=== PATIENT | male | born 1955 | race American Indian/Alaskan Native ===

== ENCOUNTER 2019-01-21 15:16 | Inpatient (IN) | payer MEDICARE ==
--- NOTE | 2019-01-21 15:29 | Event Note ---
ED Screening Note Date of service: 01/21/19 Time: 15:28 ED Screening Note: 63 y o male presents with blood in stool and vomitting blood This initial assessment/diagnostic orders/clinical plan/treatment(s) is/are subject to change based on patients health status, clinical progression and re-assessment by fellow clinical providers in the ED. Further treatment and workup at subsequent clinical providers discretion. Patient/guardian urged not to elope from the ED as their condition may be serious if not clinically assessed and managed. Initial orders include: labs main side eval
[2019-01-21] MEDS ORDERED: SODIUM CHLORIDE 0.9% 1000 ML 2,000 ML IV ONE (16:04)
[2019-01-21] MEDS ORDERED: SODIUM CHLORIDE 0.9% 1000 ML 1,000 ML IV ONE (16:04)
[2019-01-21 16:13] LABS: Basophils # (Auto) 0.1 K/mm3 (0.0-0.1); Basophils % (Auto) 0.6 % (0.0-1.8); Eosinophils % (Auto) 0.5 % (0.0-4.3); Hematocrit 28.7 % (35.5-45.6); Hemoglobin 9.9 gm/dl (11.8-15.2); Lymphocytes # (Auto) 1.4 K/mm3 (1.2-5.4); Lymphocytes % (Auto) 15.2 % (13.4-35.0); Mean Corpuscular HGB Conc 35 % (32-34); Mean Corpuscular Volume 103 fl (84-94); Monocytes # (Auto) 0.7 K/mm3 (0.0-0.8); Monocytes % (Auto) 6.9 % (0.0-7.3); Platelet Count 266 K/mm3 (140-440); Red Blood Count 2.79 M/mm3 (3.65-5.03); Red Cell Distribution Width 12.3 % (13.2-15.2)
[2019-01-21 16:22] LABS: BUN/Creatinine Ratio 51; Blood Urea Nitrogen 46 mg/dL (9-20); Calcium 8.8 mg/dL (8.4-10.2); Hemolysis Index 7
[2019-01-21 16:23] LABS: INR 1.06 (0.87-1.13)
[2019-01-21] MEDS ORDERED: PANTOPRAZOLE 40 MG INJ IV ONE (16:23)
[2019-01-21 16:24] LABS: Partial Thromboplastin Time 26.1 Sec. (24.2-36.6)
--- NOTE | 2019-01-21 16:25 | Emergency Department Report ---
ED GI Bleed HPI - General Chief complaint: GI Bleed Stated complaint: GI BLEED PER PATIENT DOCTOR Time Seen by Provider: 01/21/19 16:04 Source: patient, family, RN notes reviewed Mode of arrival: Wheelchair Limitations: No Limitations - History of Present Illness Initial comments: Primary care DrMark: Jackie This is a pleasant 63-year-old gentleman who is not known to this provider previously. He is sent to the emergency room by his primary care doctor because of concern of upper GI bleed. Patient complains of black stool, painless, lightheadedness, dizziness, malaise and fatigue. Symptoms intermittent, dizziness, described as lightheadedness, worsens when standing up, and decreases with rest. He does not take systemic anticoagulation, and he has no history of endoscopy or colonoscopy that he is aware of. He does consume recreational alcohol. MD complaint: coffee ground emesis, melena -: Gradual, days(s) Quality: painless Consistency: constant Improves with: none Worsens with: none Associated Symptoms: nausea, vomiting, syncope, weakness. denies: other bleedi ng - Related Data Allergies Allergy/AdvReac Type Severity Reaction Status Date / Time No Known Allergies Allergy Unverified 01/21/19 15:30 ED Review of Systems ROS: Stated complaint: GI BLEED PER PATIENT DOCTOR Other details as noted in HPI Constitutional: malaise. denies: fever Eyes: denies: eye discharge ENT: denies: congestion Respiratory: denies: wheezing Cardiovascular: syncope (near syncope) Gastrointestinal: nausea, vomiting, melena. denies: hematochezia Genitourinary: denies: dysuria Musculoskeletal: denies: myalgia Skin: denies: lesions Neurological: weakness Hematological/Lymphatic: denies: easy bleeding ED Past Medical Hx - Past Medical History Previous Medical History?: Yes Hx Hypertension: Yes - Surgical History Past Surgical History?: Yes Additional Surgical History: eye surgery - Social History Smoking Status: Never Smoker Substance Use Type: None ED Physical Exam - General Limitations: No Limitations General appearance: alert, anxious - Head Head exam: Present: atraumatic, normocephalic - Eye Eye exam: Present: normal appearance, EOMI, other (bilateral conjunctiva noted to be pale). Absent: nystagmus - ENT ENT exam: Present: normal exam, normal orophraynx, mucous membranes moist, normal external ear exam - Neck Neck exam: Present: normal inspection, full ROM. Absent: tenderness, meningismus - Respiratory Respiratory exam: Present: normal lung sounds bilaterally. Absent: respiratory distress - Cardiovascular Cardiovascular Exam: Present: normal rhythm, tachycardia, normal heart sounds. Absent: systolic murmur, diastolic murmur, rubs, gallop - GI/Abdominal GI/Abdominal exam: Present: soft. Absent: distended, tenderness, guarding, rebound, rigid, pulsatile mass - Rectal Rectal exam: Present: normal inspection, heme (+) stool, black stool, other (bilingual teacher aide by Dave Rich). Absent: bloody stool, fecal impaction, tenderness - Extremities Exam Extremities exam: Present: normal inspection, full ROM, other (2+ pulses noted in the bilateral upper, lower extremities. There is no long bone tenderness. Musculoskeletal compartments are soft. The pelvis is stable.). Absent: pedal edema, joint swelling, calf tenderness - Back Exam Back exam: Present: normal inspection, full ROM. Absent: tenderness, CVA tenderness (R), CVA tenderness (L), paraspinal tenderness, vertebral tenderness - Neurological Exam Neurological exam: Present: alert, normal gait, other (there is no facial droop. The tongue is midline. Extraocular movements are intact bilaterally. Patient speaking in full complete sentences. Shoulder shrug is intact bilaterally. Hea ring is grossly intact bilaterally. Visual acuity intact to finger counting and color perception at a close distance. 5/5 strength 4 extremities. Sensation intact to light touch in 4 extremities.). Absent: motor sensory deficit - Psychiatric Psychiatric exam: Present: anxious - Skin Skin exam: Present: warm, dry, intact, normal color. Absent: rash ED Course Vital Signs 01/21/19 01/21/19 15:27 16:15 Temperature 97.5 F L Pulse Rate 123 H 116 H Respiratory 18 19 Rate Blood Pressure 92/61 Blood Pressure 111/67 [Right] O2 Sat by Pulse 100 100 Oximetry ED Medical Decision Making - Lab Data Result diagrams: 01/21/19 15:34 01/21/19 15:34 Vital Signs 01/21/19 01/21/19 15:27 16:15 Temperature 97.5 F L Pulse Rate 123 H 116 H Respiratory 18 19 Rate Blood Pressure 92/61 Blood Pressure 111/67 [Right] O2 Sat by Pulse 100 100 Oximetry Lab Results 01/21/19 01/21/19 01/21/19 Range/Units 15:34 15:34 15:34 WBC 9.4 (4.5-11.0) K/mm3 RBC 2.79 L (3.65-5.03) M/mm3 Hgb 9.9 L (11.8-15.2) gm/dl Hct 28.7 L (35.5-45.6) % MCV 103 H (84-94) fl MCH 36 H (28-32) pg MCHC 35 H (32-34) % RDW 12.3 L (13.2-15.2) % Plt Count 266 (140-440) K/mm3 Lymph % (Auto) 15.2 (13.4-35.0) % [place] % (Auto) 6.9 (0.0-7.3) % Eos % (Auto) 0.5 (0.0-4.3) % Baso % (Auto) 0.6 (0.0-1.8) % Lymph # 1.4 (1.2-5.4) K/mm3 [place] # 0.7 (0.0-0.8) K/mm3 Eos # 0.0 (0.0-0.4) K/mm3 Baso # 0.1 (0.0-0.1) K/mm3 Seg Neutrophils % 76.8 H (40.0-70.0) % Seg Neutrophils # 7.2 (1.8-7.7) K/mm3 PT 13.7 (12.2-14.9) Sec. INR 1.06 (0.87-1.13) APTT 26.1 (24.2-36.6) Sec. Sodium 135 L (137-145) mmol/L Potassium 4.5 (3.6-5.0) mmol/L Chloride 98.8 (98-107) mmol/L Carbon Dioxide 23 (22-30) mmol/L Anion Gap 18 mmol/L BUN 46 H (9-20) mg/dL Creatinine 0.9 (0.8-1.5) mg/dL Estimated GFR > 60 ml/min BUN/Creatinine Ratio 51 % Glucose 138 H (75-100) mg/dL Calcium 8.8 (8.4-10.2) mg/dL Magnesium (1.7-2.3) mg/dL Total Creatine Kinase (55-170) units/L Blood Type Antibody Screen 01/21/19 01/21/19 Range/Units 15:36 Unknown WBC (4.5-11.0) K/mm3 RBC (3.65-5.03) M/mm3 Hgb (11.8-15.2) gm/dl Hct (35.5-45.6) % MCV (84-94) fl MCH (28-32) pg MCHC (32-34) % RDW (13.2-15.2) % Plt Count (140-440) K/mm3 Lymph % (Auto) (13.4-35.0) % [place] % (Auto) (0.0-7.3) % Eos % (Auto) (0.0-4.3) % Baso % (Auto) (0.0-1.8) % Lymph # (1.2-5.4) K/mm3 [place] # (0.0-0.8) K/mm3 Eos # (0.0-0.4) K/mm3 Baso # (0.0-0.1) K/mm3 Seg Neutrophils % (40.0-70.0) % Seg Neutrophils # (1.8-7.7) K/mm3 PT (12.2-14.9) Sec. INR (0.87-1.13) APTT (24.2-36.6) Sec. Sodium (137-145) mmol/L Potassium (3.6-5.0) mmol/L Chloride (98-107) mmol/L Carbon Dioxide (22-30) mmol/L Anion Gap mmol/L BUN (9-20) mg/dL Creatinine (0.8-1.5) mg/dL Estimated GFR ml/min BUN/Creatinine Ratio % Glucose (75-100) mg/dL Calcium (8.4-10.2) mg/dL Magnesium 1.80 (1.7-2.3) mg/dL Total Creatine Kinase 68 (55-170) units/L Blood Type AB POSITIVE Antibody Screen Negative - EKG Data -: EKG Interpreted by Ri EKG shows normal: sinus rhythm Rate: tachycardia - EKG Data When compared to previous EKG there are: previous EKG unavailable 01/21/19 18:08 There is no prior EKG available for comparison. The EKG shows a sinus tachycardia, 109 bpm, ventricular hypertrophy, QTC 442 ms, not having chest pain, EKG abnormal, there is no prior for comparison, the EKG is not consistent with STEMI - Medical Decision Making Differential diagnosis, including not limited to: Upper GI bleed Assessment and plan: 63-year-old gentleman with complaint of weakness, lightheadedness, found to be tachycardic, hypotensive, now resolved, laboratory evidence of physical exam evidence suggest upper GI bleed. 2 large-bore IVs established. IV fluids established. Protonix ordered. Contacted [facility], Dr. Lambert, will following consultation. Contacted his primary care doctor, Dr Vasquez., who has accepted the patient to the medical service. Discussed plan of care for admission with patient, and family, who verbalized understanding, they were amenable to hospitalization and admission at this time. Critical care attestation.: If time is entered above; I have spent that time in minutes in the direct care of this critically ill patient, excluding procedure time. ED Disposition Clinical Impression: UGIB (upper gastrointestinal bleed) Disposition: DC-09 OP ADMIT IP TO THIS HOSP Is pt being admited?: Yes Condition: Serious Referrals: MARC VASQUEZ MD [Primary Care Provider] - 3-5 Days Forms: Accompanied Note
--- NOTE | 2019-01-21 18:22 | History and Physical Report ---
History of Present Illness Date of examination: 01/21/19 Date of admission: 01/21/19 Chief complaint: Hematemesis and melena - 1 day duration History of present illness: Patient is a 63 y/o male aaron presented to my office today in company of his bother on account of passing dark tarry stool and having an episode of hematemesis. However he has lightheadedness, dizziness, malaise and fatigue worsens on standing up, and abates with rest. he was recently place on NSAID by his driver medic of foot pain. He who is less than a month old to my practice has no history of endoscopy or colonoscopy that he is aware of. He is not on any systemic anticoagulation. Direct admission through the ED was requested. On admission pat has sinus tach and H/H was 9.9 and 28.7 has elevate BUN of 46. GI consult was obtained after discussion with the Ed doctor. Patient was commence on IVF and Protonix with serial H/H. Past History Past Medical History: hypertension Medications and Allergies Allergies Allergy/AdvReac Type Severity Reaction Status Date / Time No Known Allergies Allergy Unverified 01/21/19 15:30 Active Meds: Active Medications Pantoprazole Sodium (Protonix) 40 mg IV BID BRITTNI Sodium Chloride (Nacl 0.9%) 125 ml IV DIRECT BRITTNI Review of Systems Constitutional: fatigue, weakness, no weight loss, no weight gain, no fever, no chills Ears, nose, mouth and throat: no ear pain, no ear discharge, no tinnitis Cardiovascular: no chest pain, no orthopnea, no palpitations, no rapid/irregular heart beat, no edema Respiratory: no cough, no cough with sputum, no excessive sputum Gastrointestinal: hematemesis, coffee ground emesis, melena, no abdominal pain, no nausea, no vomiting, no diarrhea, no constipation Genitourinary Male: no urinary frequency, no urinary hesitancy, no nocturia, no incontinence Musculoskeletal: no neck stiffness, no neck pain, no shooting arm pain, no arm numbness/tingling Integumentary: no rash, no pruritis, no redness Neurological: no head injury, no transient paralysis, no paralysis, no weakness, no numbness, no tingling Psychiatric: no memory loss, no change in sleep habits, no sleep disturbances, no insomnia, no hypersomnia, no change in appetite Endocrine: no cold intolerance, no heat intolerance, no polyphagia Hematologic/Lymphatic: no easy bruising, no easy bleeding Allergic/Immunologic: no urticaria, no allergic rhinitis Exam - Constitutional Vitals: Temp Pulse Resp BP Pulse Ox 97.5 F L 116 H 19 111/67 100 01/21/19 15:27 01/21/19 16:15 01/21/19 16:15 01/21/19 16:15 01/21/19 16:15 General appearance: Present: no acute distress, well-nourished - EENT Eyes: Present: PERRL ENT: hearing intact, clear oral mucosa - Neck Neck: Present: supple, normal ROM - Respiratory Respiratory effort: normal Respiratory: bilateral: CTA - Cardiovascular Heart Sounds: Present: S1 & S2. Absent: rub, click - Extremities Extremities: pulses symmetrical, No edema Peripheral Pulses: within normal limits - Abdominal General gastrointestinal: Present: soft, non-tender, non-distended, normal bowel sounds - Integumentary Integumentary: Present: clear, warm, dry - Musculoskeletal Musculoskeletal: gait normal, strength equal bilaterally - Psychiatric Psychiatric: appropriate mood/affect, intact judgment & insight - Neurologic Neurologic: CNII-XII intact, moves all extremities Results - Labs CBC & Chem 7: 01/21/19 15:34 01/21/19 15:34 Labs: Abnormal lab results 01/21/19 01/21/19 Range/Units 15:34 15:34 RBC 2.79 L (3.65-5.03) M/mm3 Hgb 9.9 L (11.8-15.2) gm/dl Hct 28.7 L (35.5-45.6) % MCV 103 H (84-94) fl MCH 36 H (28-32) pg MCHC 35 H (32-34) % RDW 12.3 L (13.2-15.2) % Seg Neutrophils % 76.8 H (40.0-70.0) % Sodium 135 L (137-145) mmol/L BUN 46 H (9-20) mg/dL Glucose 138 H (75-100) mg/dL Assessment and Plan - GI bleeding likely uper GI NPO IVF with NS Iiv Protonix Serial H/H. Transfuse if Hg < 8 GI consulted - LAURENT with elevated BUN likely from GI bleeding IV hydration - Hyperglycemia Obatin A1c - DVT PPx with SCD only. Avoid anticoagulation b/c gi bleeding
[2019-01-21] MEDS ORDERED: SODIUM CHLORIDE 0.9% 100 ML IVPB IV SCH (19:00)
[2019-01-21] MEDS ORDERED: SODIUM CHLORIDE 0.9% 1000 ML 1,000 ML IV SCH (19:00)
[2019-01-21] MEDS: PANTOPRAZOLE 40 MG INJ IV SCH (21:51)
[2019-01-21 21:52] LABS: Hemoglobin 6.8 gm/dl (11.8-15.2)
[2019-01-21 22:10] LABS: Hematocrit 19.9 % (35.5-45.6)
[2019-01-21] MEDS ORDERED: MORPHINE 2 MG/1 ML INJ IV PRN (22:33)
[2019-01-22] MEDS ORDERED: SODIUM CHLORIDE 0.9% 500 ML 500 ML IV ONE (01:20)
--- NOTE | 2019-01-22 09:24 | Cat Scan Report ---
CT ABDOMEN AND PELVIS WITHOUT CONTRAST HISTORY: Abdominal pain. COMPARISON: None TECHNIQUE: Routine abdominal and pelvic CT exam performed without contrast. Lack of intravenous cont rast limits evaluation of the vascular and solid organs.. All CT scans at this location are performed using CT dose reduction for ALARA by means of automated exposure control. FINDINGS: CT ABDOMEN: Lung Bases: No significant abnormality. Liver: No significant abnormality. Biliary: No significant abnormality. Spleen: No significant abnormality. Unenlarged. Pancreas: No significant abnormality. Adrenals: No significant abnormality. Kidneys: No stones, pelvocaliectasis, ureterectasis. No perinephric or periureteral stranding. Lymphatics: No lymphadenopathy. Vasculature: Atherosclerotic but nonaneurysmal abdominal aorta. Bowel/Peritoneum: Nonobstructive bowel pattern. Diverticulosis without mesocolonic fat stranding. No free air. No free fluid. CT PELVIC: : No significant abnormality. Lymphatics: No lymphadenopathy. Osseous Structures: No aggressive appearing osseous lesions. Additional Findings: None IMPRESSION: 1. No acute or concerning findings. 2. Colonic diverticulosis without evidence of acute diverticulitis. 3. Aortic atherosclerosis without aneurysm. Signer Name: James Aceves MD Signed: 01/22/2019 9:20 AM Workstation Name: [email or web address]
--- NOTE | 2019-01-22 09:25 | Gastroenterology Consultation ---
<NADYA MEAD - Last Filed: 01/22/19 09:33> History of Present Illness - Reason for Consult Consult date: 01/22/19 UGIB Requesting physician: NURIS MEDEROS - History of Present Illness Patient is a 63 y/o male with PMH of HTN who presented to ED with c/o black stools with associated lightheadedness/dizziness, and malaise/fatigue. GI has been consulted for UGIB. This morning patient was resting in bed w/o acute distress. Reports feeling better after receiving blood transfusion. Reports epigastric pain described as burning x 1 week and then developed multiple episodes of black stools yesterday along with vomiting dark/black emesis. Last episode of bleeding was yesterday with no active signs of bleeding this am. Denies fever, CP, SOB, wt loss, hematemesis, or hematochezia. Takes occasional Aleve and was recently started on Meloxicam ~3 weeks ago for foot pain. No hx of PUD, liver disease, or prior GI bleeding. Drinks 3-4 beers daily. No previous EGD. Past History Past Medical History: hypertension Past Surgical History: Other (eye surgery) Social history: other (alcohol). denies: smoking Medications and Allergies Allergies Allergy/AdvReac Type Severity Reaction Status Date / Time No Known Allergies Allergy Unverified 01/21/19 15:30 Home Medications Medication Instructions Recorded Confirmed Last Taken Type Cetirizine HCl [Zyrtec 10mg tab] 10 mg PO DAILY 01/22/19 01/22/19 01/20/19 History Meloxicam [Mobic] 7.5 mg PO QDAY 01/22/19 01/22/19 01/20/19 History amLODIPine [Norvasc] 10 mg PO DAILY 01/22/19 01/22/19 01/20/19 History Active Meds: Active Medications Sodium Chloride (Nacl 0.9% 1000 Ml) 1,000 mls @ 125 mls/hr IV DIRECT BRITTNI Last Admin: 01/21/19 21:50 Dose: 125 mls/hr Documented by: Morphine Sulfate (Morphine) 2 mg IV Q4H PRN PRN Reason: Pain , Severe (7-10) Last Admin: 01/22/19 01:07 Dose: 2 mg Documented by: Pantoprazole Sodium (Protonix) 40 mg IV BID BRITTNI Last Admin: 01/21/19 21:51 Dose: 40 mg Documented by: medications reviewed/updated as required Review of Systems - Review of Systems All systems: negative Constitutional: weakness Gastrointestinal: abdominal pain (epigastric), coffee ground emesis, melena Exam - Constitutional Vital Signs: Temp Pulse Resp BP Pulse Ox 98.6 F 81 18 107/67 97 01/22/19 07:33 01/22/19 07:33 01/22/19 07:33 01/22/19 07:33 01/22/19 07:33 General appearance: no acute distress - EENT Eyes: PERRL, EOM intact ENT: hearing intact - Respiratory Respiratory effort: normal - Cardiovascular Rhythm: regular - Gastrointestinal General gastrointestinal: Present: soft, non-tender, non-distended, normal bowel sounds - Integumentary Integumentary: Present: warm, dry - Neurologic Neurological: alert and oriented x3 - Labs CBC & Chem 7: 01/21/19 21:37 01/21/19 15:34 Lab Results: Laboratory Results - last 24 hr 01/21/19 01/21/19 01/21/19 15:34 15:34 15:34 WBC 9.4 RBC 2.79 L Hgb 9.9 L Hct 28.7 L MCV 103 H MCH 36 H MCHC 35 H RDW 12.3 L Plt Count 266 Lymph % (Auto) 15.2 [place] % (Auto) 6.9 Eos % (Auto) 0.5 Baso % (Auto) 0.6 Lymph # 1.4 [place] # 0.7 Eos # 0.0 Baso # 0.1 Seg Neutrophils % 76.8 H Seg Neutrophils # 7.2 PT 13.7 INR 1.06 APTT 26.1 Sodium 135 L Potassium 4.5 Chloride 98.8 Carbon Dioxide 23 Anion Gap 18 BUN 46 H Creatinine 0.9 Estimated GFR > 60 BUN/Creatinine Ratio 51 Glucose 138 H Hemoglobin A1c Calcium 8.8 Magnesium Total Creatine Kinase Blood Type Antibody Screen Crossmatch 01/21/19 01/21/19 01/21/19 15:34 15:36 21:37 WBC RBC Hgb 6.8 L D Hct 19.9 L* D MCV MCH MCHC RDW Plt Count Lymph % (Auto) [place] % (Auto) Eos % (Auto) Baso % (Auto) Lymph # [place] # Eos # Baso # Seg Neutrophils % Seg Neutrophils # PT INR APTT Sodium Potassium Chloride Carbon Dioxide Anion Gap BUN Creatinine Estimated GFR BUN/Creatinine Ratio Glucose Hemoglobin A1c 5.0 Calcium Magnesium Total Creatine Kinase Blood Type AB POSITIVE Antibody Screen Negative Crossmatch See Detail 01/21/19 Unknown WBC RBC Hgb Hct MCV MCH MCHC RDW Plt Count Lymph % (Auto) [place] % (Auto) Eos % (Auto) Baso % (Auto) Lymph # [place] # Eos # Baso # Seg Neutrophils % Seg Neutrophils # PT INR APTT Sodium Potassium Chloride Carbon Dioxide Anion Gap BUN Creatinine Estimated GFR BUN/Creatinine Ratio Glucose Hemoglobin A1c Calcium Magnesium 1.80 Total Creatine Kinase 68 Blood Type Antibody Screen Crossmatch Assessment and Plan 1.UGIB 2.melena/coffee-ground emesis 3.acute blood loss anemia -H/H 6.8/19.9 - 2 units PRBCs transfused with repeat H/H pending -continue to monitor H/H and transfuse as needed -no active signs of bleeding this am; patient reports multiple episodes of black stools and coffee-ground emesis yesterday. No hematemesis or hematochezia. +epigastric pain/burning. -currently HD stable -etiology-likely 2/2 PUD given history vs other -will schedule for EGD today for further evaluation -Keep NPO for now -continue PPI and supportive care -further recommendations to follow EGD results <MARIANA MONTGOMERY - Last Filed: 01/22/19 09:58> Medications and Allergies Active Meds: Active Medications Sodium Chloride (Nacl 0.9% 1000 Ml) 1,000 mls @ 50 mls/hr IV DIRECT [facility] Morphine Sulfate (Morphine) 2 mg IV Q4H PRN PRN Reason: Pain , Severe (7-10) Last Admin: 01/22/19 01:07 Dose: 2 mg Documented by: Pantoprazole Sodium (Protonix) 40 mg IV BID BRITTNI Last Admin: 01/21/19 21:51 Dose: 40 mg Documented by: Exam - Constitutional Vital Signs: Temp Pulse Resp BP Pulse Ox 98.1 F 83 16 114/73 99 01/22/19 09:45 01/22/19 09:45 01/22/19 09:45 01/22/19 09:45 01/22/19 09:45 - Labs CBC & Chem 7: 01/21/19 21:37 01/21/19 15:34 Lab Results: Laboratory Results - last 24 hr 01/21/19 01/21/19 01/21/19 15:34 15:34 15:34 WBC 9.4 RBC 2.79 L Hgb 9.9 L Hct 28.7 L MCV 103 H MCH 36 H MCHC 35 H RDW 12.3 L Plt Count 266 Lymph % (Auto) 15.2 [place] % (Auto) 6.9 Eos % (Auto) 0.5 Baso % (Auto) 0.6 Lymph # 1.4 [place] # 0.7 Eos # 0.0 Baso # 0.1 Seg Neutrophils % 76.8 H Seg Neutrophils # 7.2 PT 13.7 INR 1.06 APTT 26.1 Sodium 135 L Potassium 4.5 Chloride 98.8 Carbon Dioxide 23 Anion Gap 18 BUN 46 H Creatinine 0.9 Estimated GFR > 60 BUN/Creatinine Ratio 51 Glucose 138 H Hemoglobin A1c Calcium 8.8 Magnesium Total Creatine Kinase Blood Type Antibody Screen Crossmatch 01/21/19 01/21/19 01/21/19 15:34 15:36 21:37 WBC RBC Hgb 6.8 L D Hct 19.9 L* D MCV MCH MCHC RDW Plt Count Lymph % (Auto) [place] % (Auto) Eos % (Auto) Baso % (Auto) Lymph # [place] # Eos # Baso # Seg Neutrophils % Seg Neutrophils # PT INR APTT Sodium Potassium Chloride Carbon Dioxide Anion Gap BUN Creatinine Estimated GFR BUN/Creatinine Ratio Glucose Hemoglobin A1c 5.0 Calcium Magnesium Total Creatine Kinase Blood Type AB POSITIVE Antibody Screen Negative Crossmatch See Detail 01/21/19 Unknown WBC RBC Hgb Hct MCV MCH MCHC RDW Plt Count Lymph % (Auto) [place] % (Auto) Eos % (Auto) Baso % (Auto) Lymph # [place] # Eos # Baso # Seg Neutrophils % Seg Neutrophils # PT INR APTT Sodium Potassium Chloride Carbon Dioxide Anion Gap BUN Creatinine Estimated GFR BUN/Creatinine Ratio Glucose Hemoglobin A1c Calcium Magnesium 1.80 Total Creatine Kinase 68 Blood Type Antibody Screen Crossmatch Assessment and Plan Patient seen and examined. Agree with note above. Will plan for EGD today; cont IV PPI
--- NOTE | 2019-01-22 09:39 | Anesthesia Day of Surgery ---
Anesthesia Day of Surgery - Day of Surgery Patient Examined: Yes Patient H&P Reviewed: Yes Patient is NPO: Yes
--- NOTE | 2019-01-22 09:39 | Anesthesia Consultation ---
Anesthesia Consult and Med Hx Date of service: 01/22/19 - Airway Anesthetic Teeth Evaluation: Edentulous ROM Head & Neck: Adequate Mental/Hyoid Distance: Adequate Mallampati Class: Class II Intubation Access Assessment: Good - Pulmonary Exam CTA: Yes - Cardiac Exam Cardiac Exam: RRR - Pre-Operative Health Status ASA Pre-Surgery Classification: ASA2 - Pulmonary Hx Smoking: Yes - Cardiovascular System Hx Hypertension: Yes - Other Systems Hx Cancer: No
[2019-01-22] MEDS: SODIUM CHLORIDE 0.9% 1000 ML 1,000 ML IV SCH ×2 (09:44→15:11)
[2019-01-22] MEDS ORDERED: LIDOCAINE MPF (2%) 20 MG/1 ML VIAL 5 ML ONE (10:00)
[2019-01-22] MEDS ORDERED: PHENYLEPHRINE/NS 1,000 MCG/10 ML SYRINGE (OR USE) IV ONE (10:00)
[2019-01-22] MEDS ORDERED: PROPOFOL 200 MG/20 ML VIAL IV ONE (10:03)
--- NOTE | 2019-01-22 10:25 | Operative Report ---
Operative Report Operative Report: Esophagogastroduodenoscopy Procedure Note with Biopsies Date of procedure: 01/22/2019 Endoscopist: Martín Lambert Pre-op diagnosis: Melena, Upper GI bleed Post-op diagnosis: Clean based ulcers in the antrum; sophie javon tear, enlarged fold vs polyp in antrum (biopsied) Anesthesia: MAC Complications: No immediate complications Estimated blood loss: minimal Procedure: After consent was obtained, the patient was placed in the left lateral decubitus position. The olympus endoscope was inserted into the patient's mouth under direct vision, and advanced into the 2nd portion of the duodenum without difficulty. The patient tolerated the procedure well. The views of the mucosa were good. Patient's vital signs were monitored continuously throughout the procedure. Findings: There was a sophie javon tear in the lower esophagus without high risk bleeding stigmata. Moderately severe esophagitis in the lower esophagus. There were two cratered, clean based ulcers in the antrum. The ulcers were ~8 mm in size. There were no high risk bleeding stigmata associated with the ulcers. The surrounding mucosa was erythematous and inflamed. Biopsies were obtained to rule out H pylori and adenoma. There was an enlarged fold/inflamed mucosa vs polyp in the antrum of the stomach. Biopsies were obtained to rule out dysplasia. The duodenum appeared normal. Impression: 1. Clean based ulcers in the antrum of the stomach. Surrounding mucosa was erythematous/inflamed. biopsies obtained to rule out h pylori and dysplasia. 2. Abnormal growth/polyp vs enlarged fold in the antrum. Biopsied to rule out adenoma/dysplasia. 3. Sophie javon tear without high risk bleeding stigmata. Recommendations: -can switch to PPI po BID dosing -d/c nsaid's -follow-up pathology -okay to start clears and advance as tolerated if no further bleeding today and labs stable -repeat EGD in 2 months to assess for ulcer healing and re-evaluate possible polyp/growth in the antrum -follow-up CT scan results
[2019-01-22] MEDS: PANTOPRAZOLE 40 MG INJ IV SCH ×2 (11:34→21:54)
[2019-01-22 12:43] LABS: Basophils % (Auto) 0.7 % (0.0-1.8); Eosinophils # (Auto) 0.2 K/mm3 (0.0-0.4); Hematocrit 30.1 % (35.5-45.6); Hemoglobin 10.2 gm/dl (11.8-15.2); Lymphocytes # (Auto) 1.4 K/mm3 (1.2-5.4); Lymphocytes % (Auto) 26.2 % (13.4-35.0); Mean Corpuscular HGB Conc 34 % (32-34); Mean Corpuscular Volume 97 fl (84-94); Monocytes # (Auto) 0.5 K/mm3 (0.0-0.8); Platelet Count 165 K/mm3 (140-440); Red Blood Count 3.12 M/mm3 (3.65-5.03); Red Cell Distribution Width 17.4 % (13.2-15.2)
[2019-01-22 13:06] LABS: Alanine Aminotransferase 10 units/L (7-56); BUN/Creatinine Ratio 27; Blood Urea Nitrogen 19 mg/dL (9-20); Calcium 7.7 mg/dL (8.4-10.2); Hemolysis Index 8
--- NOTE | 2019-01-22 14:45 | Progress Note ---
Assessment and Plan Patient is a 63 y/o male aaron presented to my office today in company of his bother on account of passing dark tarry stool and having an episode of hematemesis. However he has lightheadedness, dizziness, malaise and fatigue worsens on standing up, and abates with rest. 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 He who is less than a month old to my practice has no history of endoscopy or colonoscopy that he is aware of. He is not on any systemic anticoagulation. Direct admission through the ED was requested. On admission pat has sinus tach and H/H was 9.9 and 28.7 this further decreased to 6.2. Has elevate BUN of 46. GI consult was obtained after discussion with the Ed doctor. Patient was commence on IVF and Protonix with serial H/H. - GI bleeding likely upper GI EGD showed antral ulcer with clean base Continue IVF with NS Continue iv Protonix Serial H/H. Transfuse if Hg < 8 GI following - Anemia due to gastrointestinal bleeding Had 2 units of packed red blood cell improving from 6.8 to 10.2 - LAURENT with elevated BUN likely from GI bleeding Continue IV hydration - Hyperglycemia A1c was 5.0 - DVT PPx with SCD only. Avoid anticoagulation b/c gi bleeding Subjective Date of service: 01/22/19 Principal diagnosis: GI bleeding Interval history: She has seen and examined. Denies any active bleeding. No abdominal pain. Objective - Exam Narrative Exam: Constitutional: Well-nourished well-developed. In no distress Head: Normocephalic atraumatic Eyes: Pupils are equal round and reactive to light Nose: No enlarged turbinates, no septal deviation. Mouth: Moist mucous membranes. Neck: Supple no thyromegaly. No bruit. No JVD Heart: Regular rate and rhythm, S1-S2 normal. No rubs murmurs or gallop Lungs: Clear to auscultation bilaterally. no rales or rhonchi Abdomen: Soft, nontender. Bowel sound are present. Extremities: No edema, no cyanosis, no clubbing. Neuro: Alert oriented Oriented x3. No focal sensory or motor deficit. Skin: No rashes or hyperpigmented spots Musculoskeletal system: No joint pain or swelling Hematological: No petechia or subcutanous hemorrhages. Immunological: No multiple septic spots on the skin Lymphatic: No generalized lymphadenopathy Psychiatry: Euthymic. Calm. - Constitutional Vitals: Vital Signs - 12hr 01/22/19 01/22/19 01/22/19 03:05 03:25 03:40 Temperature 98.6 F 98.6 F 98.5 F Pulse Rate 82 86 Respiratory 18 18 18 Rate Blood Pressure 84/54 84/54 93/60 O2 Sat by Pulse 99 97 Oximetry 01/22/19 01/22/19 01/22/19 04:10 04:20 04:40 Temperature 98.6 F 96.6 F L Pulse Rate 97 H 81 79 Respiratory 18 18 Rate Blood Pressure 87/57 96/63 O2 Sat by Pulse 95 98 Oximetry 01/22/19 01/22/19 01/22/19 05:10 05:27 05:35 Temperature 96.6 F L 96.6 F L 96.7 F L Pulse Rate 78 78 82 Respiratory 18 18 18 Rate Blood Pressure 85/52 85/52 100/55 O2 Sat by Pulse 97 97 95 Oximetry 01/22/19 01/22/19 01/22/19 05:50 05:58 06:20 Temperature 98.4 F 98.4 F 98.4 F Pulse Rate 82 82 82 Respiratory 18 18 18 Rate Blood Pressure 93/64 107/64 93/64 O2 Sat by Pulse 96 95 96 Oximetry 01/22/19 01/22/19 01/22/19 06:50 06:51 07:20 Temperature 98.4 F 98.4 F 98.4 F Pulse Rate 82 82 78 Respiratory 18 18 18 Rate Blood Pressure 93/64 93/64 92/62 O2 Sat by Pulse 96 96 95 Oximetry 01/22/19 01/22/19 01/22/19 07:33 09:36 09:45 Temperature 98.6 F 98.1 F 98.1 F Pulse Rate 81 83 83 Respiratory 18 16 16 Rate Blood Pressure 107/67 114/73 114/73 O2 Sat by Pulse 97 99 99 Oximetry 01/22/19 01/22/19 01/22/19 10:29 10:35 10:40 Temperature 97.4 F L Pulse Rate 84 76 71 Respiratory 16 16 16 Rate Blood Pressure 67/32 88/46 99/60 O2 Sat by Pulse 91 100 100 Oximetry 01/22/19 01/22/19 01/22/19 10:45 11:00 12:13 Temperature 97.5 F L Pulse Rate 72 75 Respiratory 18 18 Rate Blood Pressure 109/66 117/77 125/80 O2 Sat by Pulse 100 98 Oximetry - Labs CBC & Chem 7: 01/22/19 11:59 01/22/19 11:59 Labs: Abnormal lab results 01/21/19 01/21/19 01/21/19 Range/Units 15:34 15:34 15:36 RBC 2.79 L (3.65-5.03) M/mm3 Hgb 9.9 L (11.8-15.2) gm/dl Hct 28.7 L (35.5-45.6) % MCV 103 H (84-94) fl MCH 36 H (28-32) pg MCHC 35 H (32-34) % RDW 12.3 L (13.2-15.2) % [place] % (Auto) (0.0-7.3) % Seg Neutrophils % 76.8 H (40.0-70.0) % Sodium 135 L (137-145) mmol/L Chloride (98-107) mmol/L Carbon Dioxide (22-30) mmol/L BUN 46 H (9-20) mg/dL Creatinine (0.8-1.5) mg/dL Glucose 138 H (75-100) mg/dL Calcium (8.4-10.2) mg/dL Total Protein (6.3-8.2) g/dL Albumin (3.9-5) g/dL Crossmatch See Detail 01/21/19 01/22/19 01/22/19 Range/Units 21:37 11:59 11:59 RBC 3.12 L (3.65-5.03) M/mm3 Hgb 6.8 L D 10.2 L D (11.8-15.2) gm/dl Hct 19.9 L* D 30.1 L D (35.5-45.6) % MCV 97 H (84-94) fl MCH 33 H (28-32) pg MCHC (32-34) % RDW 17.4 H (13.2-15.2) % [place] % (Auto) 10.0 H (0.0-7.3) % Seg Neutrophils % (40.0-70.0) % Sodium (137-145) mmol/L Chloride 109.8 H (98-107) mmol/L Carbon Dioxide 18 L (22-30) mmol/L BUN (9-20) mg/dL Creatinine 0.7 L (0.8-1.5) mg/dL Glucose (75-100) mg/dL Calcium 7.7 L (8.4-10.2) mg/dL Total Protein 5.1 L (6.3-8.2) g/dL Albumin 3.0 L (3.9-5) g/dL Crossmatch
--- NOTE | 2019-01-22 15:10 | Post Anesthesia Evaluation ---
- Post Anesthesia Evaluation Patient Participated: Yes Airway Patent: Yes Stable Respiratory Function: Yes Nausea/Vomiting: No Temp > 96.8F: Yes Pain Manageable: Yes Adequeate Hydration: Yes Anesthesia Complications: No Block Receding Appropriately: Not Applicable Patient on Ventilator: No
[2019-01-22 15:33] LABS: Hematocrit 29.5 % (35.5-45.6); Hemoglobin 9.9 gm/dl (11.8-15.2)
[2019-01-22 23:25] LABS: Hematocrit 28.5 % (35.5-45.6); Hemoglobin 9.8 gm/dl (11.8-15.2)
[2019-01-23 08:08] LABS: Basophils % (Auto) 0.8 % (0.0-1.8); Eosinophils # (Auto) 0.2 K/mm3 (0.0-0.4); Eosinophils % (Auto) 2.9 % (0.0-4.3); Hematocrit 30.3 % (35.5-45.6); Hemoglobin 10.5 gm/dl (11.8-15.2); Lymphocytes # (Auto) 1.3 K/mm3 (1.2-5.4); Mean Corpuscular HGB Conc 35 % (32-34); Mean Corpuscular Volume 95 fl (84-94); Monocytes # (Auto) 0.4 K/mm3 (0.0-0.8); Platelet Count 180 K/mm3 (140-440); Red Blood Count 3.18 M/mm3 (3.65-5.03); Red Cell Distribution Width 16.9 % (13.2-15.2)
[2019-01-23 08:55] LABS: Alanine Aminotransferase 10 units/L (7-56); Albumin 3.1 g/dL (3.9-5); BUN/Creatinine Ratio 10; Blood Urea Nitrogen 7 mg/dL (9-20); Calcium 8.1 mg/dL (8.4-10.2); Hemolysis Index 3
--- NOTE | 2019-01-23 09:42 | Progress Note ---
Assessment and Plan Patient is a 63 y/o male aaron presented to my office today in company of his bother on account of passing dark tarry stool and having an episode of hematemesis. However he has lightheadedness, dizziness, malaise and fatigue worsens on standing up, and abates with rest. he was recently place on NSAID by his bark spudder of foot pain. He who is less than a month old to my practice has no history of endoscopy or colonoscopy that he is aware of. He is not on any systemic anticoagulation. Direct admission through the ED was requested. On admission pat has sinus tach and H/H was 9.9 and 28.7 this further decreased to 6.2. Has elevate BUN of 46. GI consult was obtained after discussion with the Ed doctor. Patient was commence on IVF and Protonix with serial H/H. - GI bleeding likely upper GI EGD showed antral ulcer with clean base Continue IVF with NS Continue iv Protonix Serial H/H. Transfuse if Hg < 8 GI following - Anemia due to gastrointestinal bleeding Had 2 units of packed red blood cell improving from 6.8 to 10.2 - LAURENT with elevated BUN likely from GI bleeding Continue IV hydration - Hyperglycemia A1c was 5.0 - DVT PPx with SCD only. Avoid anticoagulation b/c gi bleeding - Code status: Pt is full code Disposition: D/c home when tolerating regular diet Subjective Date of service: 01/23/19 Principal diagnosis: GI bleeding Interval history: She has seen and examined. Denies any active bleeding. No abdominal pain. Objective - Exam Narrative Exam: Constitutional: Well-nourished well-developed. In no distress Head: Normocephalic atraumatic Eyes: Pupils are equal round and reactive to light Nose: No enlarged turbinates, no septal deviation. Mouth: Moist mucous membranes. Neck: Supple no thyromegaly. No bruit. No JVD Heart: Regular rate and rhythm, S1-S2 normal. No rubs murmurs or gallop Lungs: Clear to auscultation bilaterally. no rales or rhonchi Abdomen: Soft, nontender. Bowel sound are present. Extremities: No edema, no cyanosis, no clubbing. Neuro: Alert oriented Oriented x3. No focal sensory or motor deficit. Skin: No rashes or hyperpigmented spots Musculoskeletal system: No joint pain or swelling Hematological: No petechia or subcutanous hemorrhages. Immunological: No multiple septic spots on the skin Lymphatic: No generalized lymphadenopathy Psychiatry: Euthymic. Calm. - Constitutional Vitals: Vital Signs - 12hr 01/22/19 01/23/19 01/23/19 23:37 04:27 08:43 Temperature 98.5 F 98.5 F 98.1 F Pulse Rate 78 83 82 Respiratory 18 16 18 Rate Blood Pressure 97/59 121/70 127/78 O2 Sat by Pulse 99 98 99 Oximetry - Labs CBC & Chem 7: 01/23/19 06:40 01/23/19 06:40 Labs: Abnormal lab results 01/22/19 01/22/19 01/22/19 Range/Units 11:59 11:59 15:23 RBC 3.12 L (3.65-5.03) M/mm3 Hgb 10.2 L D 9.9 L (11.8-15.2) gm/dl Hct 30.1 L D 29.5 L (35.5-45.6) % MCV 97 H (84-94) fl MCH 33 H (28-32) pg MCHC (32-34) % RDW 17.4 H (13.2-15.2) % [place] % (Auto) 10.0 H (0.0-7.3) % Chloride 109.8 H (98-107) mmol/L Carbon Dioxide 18 L (22-30) mmol/L BUN (9-20) mg/dL Creatinine 0.7 L (0.8-1.5) mg/dL Calcium 7.7 L (8.4-10.2) mg/dL Total Protein 5.1 L (6.3-8.2) g/dL Albumin 3.0 L (3.9-5) g/dL 01/22/19 01/23/19 01/23/19 Range/Units 22:12 06:40 06:40 RBC 3.18 L (3.65-5.03) M/mm3 Hgb 9.8 L 10.5 L (11.8-15.2) gm/dl Hct 28.5 L 30.3 L (35.5-45.6) % MCV 95 H (84-94) fl MCH 33 H (28-32) pg MCHC 35 H (32-34) % RDW 16.9 H (13.2-15.2) % [place] % (Auto) 8.0 H (0.0-7.3) % Chloride 108.6 H (98-107) mmol/L Carbon Dioxide 21 L (22-30) mmol/L BUN 7 L (9-20) mg/dL Creatinine 0.7 L (0.8-1.5) mg/dL Calcium 8.1 L (8.4-10.2) mg/dL Total Protein 4.9 L (6.3-8.2) g/dL Albumin 3.1 L (3.9-5) g/dL
[2019-01-23] MEDS: PANTOPRAZOLE 40 MG INJ IV SCH (10:33)
[2019-01-23 13:11] VITALS: BP 114/96
--- NOTE | 2019-01-23 14:16 | Gastroenterology Progress Note ---
Assessment and Plan 1. Upper gi bleed 2. Peptic ulcer disease -no further bleeding since egd; clean based ulcers in antrum. avoid nsaid's and cont PPI daily. f/u path from procedure (? inflammation vs polyp in antrum). pt instructed to f/u in GI clinic in 2-3 weeks and will need repeat egd in 2 months to assess for healing. will sign off, please call as needed. Subjective Date of service: 01/23/19 Principal diagnosis: GI bleeding Interval history: pt seen and examined; tolerating po. no further overt gi bleeding since procedure Objective - Constitutional Vitals: Temp Pulse Resp BP Pulse Ox 97.9 F 87 18 114/96 100 01/23/19 13:11 01/23/19 13:11 01/23/19 13:11 01/23/19 13:11 01/23/19 13:11 General appearance: no acute distress - Respiratory Respiratory effort: normal Respiratory: bilateral: CTA - Cardiovascular Rhythm: regular Heart Sounds: Present: S1 & S2 - Gastrointestinal General gastrointestinal: Present: soft, non-tender, non-distended - Labs CBC & Chem 7: 01/23/19 06:40 01/23/19 06:40 Labs: Laboratory Results - last 24 hr 01/22/19 01/22/19 01/23/19 15:23 22:12 06:40 WBC 5.5 RBC 3.18 L Hgb 9.9 L 9.8 L 10.5 L Hct 29.5 L 28.5 L 30.3 L MCV 95 H MCH 33 H MCHC 35 H RDW 16.9 H Plt Count 180 Lymph % (Auto) 23.0 [place] % (Auto) 8.0 H Eos % (Auto) 2.9 Baso % (Auto) 0.8 Lymph # 1.3 [place] # 0.4 Eos # 0.2 Baso # 0.0 Seg Neutrophils % 65.3 Seg Neutrophils # 3.6 Sodium Potassium Chloride Carbon Dioxide Anion Gap BUN Creatinine Estimated GFR BUN/Creatinine Ratio Glucose Calcium Total Bilirubin AST ALT Alkaline Phosphatase Total Protein Albumin Albumin/Globulin Ratio 01/23/19 06:40 WBC RBC Hgb Hct MCV MCH MCHC RDW Plt Count Lymph % (Auto) [place] % (Auto) Eos % (Auto) Baso % (Auto) Lymph # [place] # Eos # Baso # Seg Neutrophils % Seg Neutrophils # Sodium 140 Potassium 3.8 Chloride 108.6 H Carbon Dioxide 21 L Anion Gap 14 BUN 7 L Creatinine 0.7 L Estimated GFR > 60 BUN/Creatinine Ratio 10 Glucose 79 Calcium 8.1 L Total Bilirubin 0.30 AST 18 ALT 10 Alkaline Phosphatase 52 Total Protein 4.9 L Albumin 3.1 L Albumin/Globulin Ratio 1.7
--- NOTE | 2019-01-23 14:20 | Discharge Summary ---
Providers - Providers Date of Admission: 01/21/19 16:32 Date of discharge: 01/23/19 Attending physician: MARC VASQUEZ 01/21/19 16:24 Consult to Physician [CONS] Urgent Comment: Consulting Provider: NEHA HORNER Physician Instructions: Reason For Exam: ugib Primary care physician: MARC VASQUEZ Hospitalization Reason for admission: GI bleeding Condition: Fair Pertinent studies: CT abdomen and pelvis showed evidence of sigmoid diverticulosis and arterosclerositc heart disease Procedures: EGD that showed antral ulcer Hospital course: Patient is a 63 y/o male aaron presented to my office today in company of his bother on account of passing dark tarry stool and having an episode of hematemesis. However he has lightheadedness, dizziness, malaise and fatigue worsens on standing up, and abates with rest. he was recently place on NSAID by his cena of foot pain. He who is less than a month old to my practice has no history of endoscopy or colonoscopy that he is aware of. He is not on any systemic anticoagulation. Direct admission through the ED was requested. On admission pat has sinus tach and H/H was 9.9 and 28.7 has elevate BUN of 46. GI consult was obtained after discussion with the Ed doctor. Patient was commence on IVF and Protonix with serial H/H. Hemoglobin dropped to 6.8. Had transfusion of 2 units of PRBC that improved his Hgb to 10.5. Pt was commenced on clear liquid and advanced to regular diet qwhic he tolerated. He is being dischrged today to f/u with PCP in 3-5 days and GI in 1-2 weeks for repeat EGD to access stomacb ulcer. Condition on discharge was satisfactory Disposition: DC-01 TO HOME OR SELFCARE Time spent for discharge: 35 mins - Discharge Diagnoses (1) Antral ulcer Status: Acute (2) UGIB (upper gastrointestinal bleed) Status: Acute Core Measure Documentation - Palliative Care Palliative Care/ Comfort Measures: Not Applicable - Core Measures Any of the following diagnoses?: none Exam - Physical Exam Narrative exam: Constitutional: Well-nourished well-developed. In no distress Head: Normocephalic atraumatic Eyes: Pupils are equal round and reactive to light Nose: No enlarged turbinates, no septal deviation. Mouth: Moist mucous membranes. Neck: Supple no thyromegaly. No bruit. No JVD Heart: Regular rate and rhythm, S1-S2 normal. No rubs murmurs or gallop Lungs: Clear to auscultation bilaterally. no rales or rhonchi Abdomen: Soft, nontender. Bowel sound are present. Extremities: No edema, no cyanosis, no clubbing. Neuro: Alert oriented Oriented x3. No focal sensory or motor deficit. Skin: No rashes or hyperpigmented spots Musculoskeletal system: No joint pain or swelling Hematological: No petechia or subcutanous hemorrhages. Immunological: No multiple septic spots on the skin Lymphatic: No generalized lymphadenopathy Psychiatry: Euthymic. Calm. - Constitutional Vitals: Temp Pulse Resp BP Pulse Ox 97.9 F 87 18 114/96 100 01/23/19 13:11 01/23/19 13:11 01/23/19 13:11 01/23/19 13:11 01/23/19 13:11 Plan Activity: fall precautions Weight Bearing Status: Non-Weight Bearing Diet: regular Follow up with: MARC VASQUEZ MD [Primary Care Provider] - 3-5 Days Forms: Accompanied Note Prescriptions: amLODIPine 10 mg PO DAILY #30 Pantoprazole [Protonix TAB] 40 mg PO QDAY #30 tablet
[2019-01-23 15:51] LABS: Hematocrit 31.5 % (35.5-45.6); Hemoglobin 10.7 gm/dl (11.8-15.2)
== END 2019-01-23 16:29 | disposition home or self-care (01) | DRG 378 ==
LOC: ED 15:16 → 2B-ACE 16:32 → 4A 18:41
PROVIDERS: ADMIT Family Medicine; ATTEND Family Medicine
PROC: 0DB68ZX Excision of Stomach, Via Natural or Artificial Opening Endoscopic, Diagnostic (ICD-10-PCS; principal; 2019-01-22)
PROC: 30233N1 Transfusion of Nonautologous Red Blood Cells into Peripheral Vein, Percutaneous Approach (ICD-10-PCS; 2019-01-22)
DX: K25.4 Chronic or unspecified gastric ulcer with hemorrhage (principal); N17.9 Acute kidney failure, unspecified; D62 Acute posthemorrhagic anemia; F17.200 Nicotine dependence, unspecified, uncomplicated; I10 Essential (primary) hypertension; R73.9 Hyperglycemia, unspecified; Z79.899 Other long term (current) drug therapy
CPT/HCPCS: 36415; 36430; 74176; 80048; 80053; 82271; 82550; 83036; 83735; 85014; 85018; 85025; 85610; 85730; 86850; 86900; 86901; 86920; 88305; 88342; 93005; 93010; 99406; G0378; C9113; J2270; J2370; J2704; J7030; J7040; P9016